=== PATIENT | female | born 2000 | race Hispanic/Latino ===

== ENCOUNTER 2018-12-03 21:48 | Emergency (ER) | payer SELFPAY ==
[~2018-12-03] VITALS: Ht 154.9 cm; Wt 90.9 kg
[~2018-12-03 21:48] MED LIST: BACTRIM DS1 TAB OR; BACTROBAN2 % EX; NO CURRENT MEDS; NO HOME MEDS; ULTRAM50 MG OR; ZITHROMAX200 MG/5 M OR; ZOFRAN ODT4 MG OR
[2018-12-03] MEDS ORDERED: BACTRIM DS1 TAB PO (22:24)
[2018-12-03 22:55] VITALS: BP 133/80
== END 2018-12-03 22:57 | disposition home or self-care (01) | DRG 605 ==
LOC: ED 21:48
DX: S91.331A Puncture wound without foreign body, right foot, initial encounter (principal); W22.8XXA Striking against or struck by other objects, initial encounter